=== PATIENT | female | born 1940 | race Caucasian/White ===

== ENCOUNTER 2016-09-04 10:54 | Emergency (ER) | payer MEDICARE, BC ==
--- NOTE | ~2016-09-04 | CT101 ---
[facility] A Service of [facility] RADIOLOGY TEXT RESULTS PATIENT: LUCY HUNTLEY LOCATION: SED : 42 UNIT #: [id number] AGE: [address]: Conrado Crum MD SEX: F ORDER DR: [id number] [place] [id number] E MR#: [id number] Acc #: [id number] NAME: LUCY HUNTLEY : 1940 SEX: F STUDY DATE/TIME: 09/04/2016 11:52 UNIT: SED ROOM: STUDY DESCRIPTION: CT Maxillofacial Area Wo Cont Attending Physician: Conrado Crum M.D. Ordering Physician: Conrado Crum M.D. Primary Care Physician: Jacinta Junior M.D. MEDICAL IMAGING REPORT This report is preliminary unless electronic signature is present. EXAM Maxillofacial CT INDICATIONS Pain after she fell off a porch this morning. She hit her face on the sidewalk and has pain and swelling overlying the right orbit and zygoma. TECHNIQUE Axial CT imaging was obtained through the facial bones. Coronal reformatted images were obtained. This CT exam was performed with one or more of the following radiation dose reduction techniques: automatic exposure control, adjustment of mA and/or kV according to patient size, and iterative reconstruction. FINDINGS No facial bone fractures are identified. Visualized paranasal sinuses and mastoid air cells appear clear, with exception of some minimal secretions seen within the right sphenoid sinus. There is right supraorbital soft tissue swelling with a hematoma measuring up to 8.3 x 1.4 cm. Again, however, no underlying fracture is seen. No post septal involvement is seen within the right orbit. I do not see any cervical adenopathy. There are degenerative changes involving the cervical spine. IMPRESSION No acute fracture or subluxation is identified although the patient has a right supraorbital hematoma measuring up to 8.3 x 1.4 cm. Dictated by... Charlee Patricio M.D. [facility] A Service of [facility] RADIOLOGY TEXT RESULTS PATIENT: LUCY HUNTLEY [place] [facility] [place] [facility] [place]IT #: [id number] AGE: [address]: Conrado Crum MD SEX: F ORDER DR: THIS IS AN ELECTRONICALLY VERIFIED REPORT Charlee Patricio M.D. at 09/04/2016 6:55 PM AFF/js TD: 09/04/2016 13:36 JOB #: [id number] MEDICAL IMAGING REPORT Page 1 of 1
--- NOTE | ~2016-09-04 | CR173 ---
[facility] A Service of [facility] [place] RADIOLOGY TEXT RESULTS PATIENT: LUCY HUNTLEY LOCATION: SED : 41 UNIT #: [id number] AGE: [address]: Conrado Crum MD SEX: F ORDER DR: [id number] [place] [id number] E MR#: [id number] Acc #: [id number] NAME: LUCY HUNTLEY : 1940 SEX: F STUDY DATE/TIME: 09/04/2016 11:40 UNIT: SED ROOM: STUDY DESCRIPTION: CR Knee 3 Views Rt Attending Physician: Conrado Crum M.D. Ordering Physician: Conrado Crum M.D. Primary Care Physician: Jacinta Junior M.D. MEDICAL IMAGING REPORT This report is preliminary unless electronic signature is present. EXAM 2 views of the right knee patient INDICATIONS Pain in the right knee. This got worse after the patient scraped this area today when she fell off her front porch this morning. FINDINGS No acute fracture or subluxation of the right knee is identified. Patient does have a small suprapatellar effusion. There is a soft tissue defect overlying the patella in keeping with history of trauma to this area. Minimal degenerative changes are noted. IMPRESSION No acute fracture or subluxation identified, although the patient does have a small soft tissue defect overlying the patella as well as a suspected small suprapatellar effusion. Dictated by... Charlee Patricio M.D. THIS IS AN ELECTRONICALLY VERIFIED REPORT Charlee Patricio M.D. at 09/04/2016 6:55 PM AFF/rnr TD: 09/04/2016 13:43 JOB #: [id number] MEDICAL IMAGING REPORT Page 1 of 1
--- NOTE | ~2016-09-04 | CT71 ---
[facility] A Service of [facility] & [facility] RADIOLOGY TEXT RESULTS PATIENT: LUCY HUNTLEY LOCATION: SED : 42 UNIT #: [id number] AGE: [address]: Conrado Crum MD SEX: F ORDER DR: [id number] [place] [id number] E MR#: [id number] Acc #: [id number] NAME: LUCY HUNTLEY : 1940 SEX: F STUDY DATE/TIME: 09/04/2016 12:47 UNIT: SED ROOM: STUDY DESCRIPTION: CT Head Wo Contrast Attending Physician: Conrado Crum M.D. Ordering Physician: Conrado Crum M.D. Primary Care Physician: Jacinta Junior M.D. MEDICAL IMAGING REPORT This report is preliminary unless electronic signature is present. EXAM Head CT without HISTORY Patient fell and hit head today, bruising around right eye and forehead. TECHNIQUE This CT exam was performed with one or more of the following radiation dose reduction techniques: automatic exposure control, adjustment of mA and/or kV according to patient size, and iterative reconstruction. COMMENT Routine noncontrast head CT is reviewed. No previous. There is no displaced calvarial fracture. The mastoid air cells are clear. The visualized paranasal sinuses are clear. There is a large amount of soft tissue swelling centered at the right brow area with a large amount of preseptal soft tissue swelling. This is consistent with described injury. No retrobulbar hematoma is appreciated. Patient has probably had cataract surgery on the right. This lens is not seen. Please confirm this clinically. There is no evidence for acute intracranial hemorrhage or extraaxial fluid collection. There is abnormal white matter low-attenuation seen involving subcortical deep and periventricular white matter supratentorial brain overall moderate. Likely small vessel disease involving the subinsular white matter on the right in particular. No intracranial mass effect. No acute intracranial hemorrhage. No extraaxial fluid collection. Basilar cisterns are patent. IMPRESSION 1. Soft tissue injury centered at the right brow area but no evidence for acute intracranial injury. 2. Probable sequelae of small vessel disease. [facility] A Service of [facility] & [facility] RADIOLOGY TEXT RESULTS PATIENT: LUCY HUNTLEY LOCATION: SED : 42 UNIT #: [id number] AGE: [address]: Conrado Crum MD SEX: F ORDER DR: ADDENDUM There is probably a small amount of retained secretions in the right sphenoid sinus. See the separate facial bone CT dictation. Dictated by... Summer Childs M.D. THIS IS AN ELECTRONICALLY VERIFIED REPORT Summer Childs M.D. at 09/04/2016 5:22 PM Karena TD: 09/04/2016 15:04 JOB #: [id number] MEDICAL IMAGING REPORT Page 1 of 1
[~2016-09-04 10:54] MED LIST: ADVAIR 1001 DISK W/D PO; CERTAGEN PO; COMBIVENT INH14.7 GM INH; DARVOCET-N 1001 TAB PO; EC-NAPROSYN500 MG PO; FISH OIL 1,0001 CAP PO; FISHOIL; LEVAQUIN PO; MEDROL PO; MOBIC PO; OYSTER CALCIUM500 MG PO; PYRIDIUM PO; ZETIA PO; ZOLOFT PO
== END 2016-09-04 14:38 | disposition home or self-care (01) ==
LOC: SED 10:54
DX: S00.83XA Contusion of other part of head, initial encounter (principal); W19.XXXA Unspecified fall, initial encounter; Y92.009 Unspecified place in unspecified non-institutional (private) residence as the place of occurrence of the external cause
CPT/HCPCS: 70450; 70486; 73562; 99284